=== PATIENT | male | born 1985 | race African-American/Black ===

== ENCOUNTER 2018-05-28 01:29 | Inpatient (IN) | payer OTHER, SELFPAY ==
[2018-05-28] MEDS ORDERED: Morphine 4 MG/ML VIAL ONE (01:57)
[2018-05-28] MEDS ORDERED: Ondansetron ODT 4 MG TAB ONE (01:57)
[2018-05-28 02:11] LABS: #Basophils 0.1 thou/uL (0.0-0.2); #Lymphocytes 2.5 thou/uL (1.20-3.40); #Monocytes 0.7 thou/uL (0.11-0.59); #Neutrophils 5.4 thou/uL (1.40-6.50); %Basophils 0.8 % (0.0-1.0); %Eosinophils 0.4 % (0.0-10.0); %Lymphocytes 28.6 % (21.0-51.0); %Monocytes 8.3 % (0.0-10.0); %Neutrophils 61.9 % (42.0-75.0); Hemoglobin 13.6 g/dL (14.0-18.0); Mean Corpuscular HGB CONC 34.9 g/dL (32.0-36.0); Mean Platelet Volume 7.4 fL (7.4-10.4); Platelet Count 216 thou/uL (130-400); RBC Distribution Width 11.8 % (11.5-14.5); Red Blood Cell (RBC) Count 4.68 mill/uL (4.70-6.10); White Blood Cell (WBC) Count 8.7 thou/uL (4.8-10.8)
[2018-05-28 02:15] LABS: PTT 34.6 SEC (22.9-36.1); Prothrombin Time 13.2 SEC (12.0-14.7)
[2018-05-28 02:42] LABS: ALT (SGPT) 21 U/L (8-55); AST (SGOT) 26 U/L (5-34); Albumin 4.4 g/dL (3.5-5.0); Alkaline Phosphatase 52 U/L (40-150); Anion Gap 14 mmol/L (10-20); BUN (Urea Nitrogen) 13 mg/dL (8.9-20.6); Calc. Creatinine Clearance 0 mL/min (70-130); Calcium 9.7 mg/dL (7.8-10.44); Carbon Dioxide 26 mmol/L (22-29); Chloride 103 mmol/L (98-107); Estimated GFR-MDRD Greater than 90; Globulin 3.5 g/dL (2.4-3.5); Glucose 117 mg/dL (70-105); Potassium 4.1 mmol/L (3.5-5.1); Protein, Total 7.9 g/dL (6.0-8.3); Sodium 139 mmol/L (136-145)
[2018-05-28] MEDS ORDERED: Meperidine HCl/PF 25 MG/ML VIAL SLOW IVP PRN (03:13)
[2018-05-28] MEDS ORDERED: HYDROmorphone 2 MG/ML VIAL SLOW IVP PRN (03:13)
[2018-05-28] MEDS ORDERED: Promethazine HCl 25 MG/ML VIAL SLOW IVP PRN (03:13)
[2018-05-28] MEDS ORDERED: Promethazine HCl 25 MG/ML VIAL IM PRN ×2 (03:13→10:13)
[2018-05-28] MEDS ORDERED: Ondansetron HCl/PF 4 MG/2 ML Vial IVP PRN ×2 (03:13→06:07)
[2018-05-28] MEDS ORDERED: Fentanyl 100 MCG/2 ML VIAL ONE ×4 (03:30→05:26)
--- NOTE | 2018-05-28 04:48 | HP ---
DATE OF ADMISSION: 05/28/2018 REQUESTING PHYSICIAN: Dr. Alford. ATTENDING PHYSICIAN: Dr. Terry. CONSULTATIONS: Orthopedic, Dr. Domingo. 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 The patient was able to get out from u nderneath the animal and stand up and continued to work. His initial injury was at approximately 200 0 or about 6 hours prior to arrival here. Patient continued to have increasing pain and swelling in his left lateral thigh, eventually he was brought to the emergency department, he underwent evaluatio n and examination and was noted to have suspected left lateral thigh compartment syndrome, at which t marcelina we were asked to evaluate the patient for admission and obtained Orthopedic consultation. ALLERGIES: None. CURRENT MEDICATIONS: None. PAST MEDICAL HISTORY: None. PAST SURGICAL HISTORY: None. SOCIAL HISTORY: Patient denies drug, tobacco, or alcohol use. 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 REVIEW OF SYSTEMS: Ten-point review of systems was negative as otherwise stated. PHYSICAL EXAMINATION: VITAL SIGNS: Blood pressure 129/70, heart rate 61, respirations 14, oxygen saturation is 97% on room air. GENERAL: The patient is resting in ER bed. He has been medicated recently with morphine so appears comfortable as long as he is sitting still. He is alert and oriented x3. [place] coma scale is 15. HEENT: Normocephalic, atraumatic. Eyes: Extraocular motion intact. PERRLA bilaterally. Ears are atraumatic with discharge. Nose are atraumatic with discharge. Oropharynx is clear. NECK: Nontender. Trachea is midline. No JVD. CHEST: Clear to auscultation with good inspiratory and expiratory effort. HEART: Regular rate and rhythm. ABDOMEN: Soft, flat, nontender with active bowel sounds. Pelvis is stable. EXTREMITIES: Bilateral upper extremity and right lower extremities are neurovascularly intact with s trength 5/5 and capillary refill less than 3 seconds. The left lower extremity has a 2-inch circumfe rential difference in size compared to the right side. He is markedly tender and swollen with a firm , tense area along the lateral thigh. He has increased pain with any flexion of his knee, but he is neurovascularly intact distally. His capillary refill is less than 3 seconds. LABORATORY FINDINGS: White blood cell count 8.7, hemoglobin 13.6, hematocrit 38.8, platelets 216. S odium 139, potassium 4.1, chloride 103, CO2 of 26, BUN 13, creatinine 1.11, glucose 117. LFTs are un remarkable. Lactic acid 1.3, PTT 35, PT 13, INR 1.0. Plain radiographs AP pelvis shows no acute fin dings. Radiographs of the left femur showed no acute findings. ASSESSMENT AND PLAN: 1. Status post crush injury to left thigh. 2. Possible left lateral thigh compartment syndrome. 3. Acute pain secondary to trauma. PLAN: We will be to admit the patient to the hospital, the patient was evaluated in the emergency de partment by Dr. Domingo who felt patient would need to go to the OR for a compartment release. Pos toperatively, he will have pulmonary toilet, gastritis, and mechanical VTE prophylaxis and chemical p rophylaxis when okay with the Orthopedic Service. Evaluation, examination, laboratory and radiograph ic findings will be discussed with Dr. Terry after this dictation.
--- NOTE | 2018-05-28 05:03 | CON ---
DATE OF CONSULTATION: 05/28/2018 CHIEF COMPLAINT: Left thigh pain. HISTORY OF PRESENT ILLNESS: Mr. Alvarado is a 32-year-old male who was riding a horse this evening. The horse fell and rolled on his left thigh. He had some pain initially, but was able to ambulate. Over the next several hours he had worsening pain and swelling of the thigh. He developed a tight th igh and pain that was out of control. He decided to go to the Emergency Department. X-rays were obt ained, which were negative for fracture. He was thought to have a possible compartment syndrome. He was given morphine; however, this has not relieved his pain. He is in significant discomfort. He h as been healthy otherwise. No previous fracture or other injury recently. PAST MEDICAL HISTORY: Negative. PAST SURGICAL HISTORY: Negative. ALLERGIES: No known drug allergies. SOCIAL HISTORY: The patient denies tobacco, alcohol, or drug use. FAMILY MEDICAL HISTORY: Noncontributory. PHYSICAL EXAMINATION: VITAL SIGNS: Stable. He is normotensive, 98% on room air. GENERAL: He is alert and oriented, mild distress, sitting upright. HEENT: Normocephalic, atraumatic. LUNGS: Breathing comfortably. CARDIOVASCULAR: Pulses palpable and regular. ABDOMEN: Soft, nontender, nondistended. MUSCULOSKELETAL: The patient's left lower extremity has swelling of the left thigh. He has a tense thigh, especially laterally. He has tenderness to palpation. He has inability to move his knee with out severe pain. He is able to flex and extend the foot and ankle. He has a palpable pulse. He rep orts normal sensation in the foot and ankle. SKIN: There are no skin laceration. His compartments are tense and firm to palpation. IMAGES: X-rays of the left femur demonstrate no obvious deformity or fracture. IMPRESSION: Left thigh compartment syndrome, acute from crush injury. PLAN: At this point, the patient will need to go to the operating room for emergent compartment rele ase. We will proceed with this. I have discussed this with the operating room and they are preparin g his operating room and staff. We will plan for a lateral incision to release the anterior and post erior compartments. This will need to be left open for several days and then we can come back and ho pefully close the wound. He is aware of this. He wants to proceed. He is aware of the etiology of compartment syndrome and long-term effects as well as risks which include infection, pain, scarring, bleeding muscle injury, nerve injury, chronic pain, and others.
--- NOTE | 2018-05-28 05:23 | OP ---
DATE OF PROCEDURE: 05/28/2018 OPERATION: Left thigh fasciotomy. PREOPERATIVE DIAGNOSIS: Left thigh compartment syndrome. POSTOPERATIVE DIAGNOSIS: Left thigh compartment syndrome. COMPLICATIONS: None. ESTIMATED BLOOD LOSS: Minimal. SURGEON: German Domingo M.D. ANESTHESIA: General. COMPLICATIONS: None. INDICATIONS: Mr. Alvarado is a 32-year-old male who fell from a horse. The horse rolled on his leg. He had a crushing injury to the left thigh. He had worsening swelling, pain, and evidence of compar tment syndrome. He was indicated for compartment release to restore blood flow to the musculature an d prevent complications of a missed compartment syndrome. Risks have been reviewed in detail. He jeffries s elected to proceed with the operation. DESCRIPTION OF PROCEDURE: Mr. Alvarado was identified in the preoperative holding area. His correct extremity was marked. He was carried to the operating room. He was positioned supine. General anes thesia was induced. A multidisciplinary timeout was performed. The left thigh was prepped and drape d in sterile fashion. At this point, we made a longitudinal incision extending down the anterior lat eral thigh. This was approximately 20 cm in length. We dissected down through the subcutaneous tiss ues and obtained hemostasis. At this point, we released the fascia over the lateral thigh. We had i mmediate release of the compartment with herniation of the muscle. The muscle appeared viable withou t any necrosis. We worked more deeply down to the intermuscular septum which was released. At this point, the patient's thigh was soft. There was no further tense or retained pressure. We placed a d amp gauze dressing and the patient was awoken and taken to the recovery room in good condition.
[2018-05-28] MEDS ORDERED: Dextrose 50% Abboject 50 ML SYRINGE SLOW IVP PRN (06:07)
[2018-05-28] MEDS ORDERED: Dextrose 5% in Water 1,000 ML IV PRN (06:07)
[2018-05-28] MEDS ORDERED: HYDROcodone/Acetaminophen 5/325 mg Tablet PO PRN (06:07)
[2018-05-28] MEDS ORDERED: hydrALAZINE 20 MG/ML VIAL SLOW IVP PRN (06:07)
[2018-05-28] MEDS ORDERED: traMADol HCl 50 MG TAB PO PRN ×2 (06:07)
[2018-05-28] MEDS ORDERED: Ondansetron ODT 4 MG TAB PO PRN (06:07)
[2018-05-28] MEDS: Sodium Chloride 0.9% 1,000 ML IV SCH ×3 (06:50→18:44)
[2018-05-28] MEDS: Acetaminophen 325 MG TAB PO SCH ×3 (07:27→18:24)
[2018-05-28] MEDS: Ibuprofen 800 MG TAB PO SCH ×3 (07:28→22:30)
--- NOTE | 2018-05-28 08:35 | RAD ---
AP PELVIS RADIOGRAPH: DATE: 05/28/18. HISTORY: Injury. FINDINGS: No acute fracture or dislocation is seen. There is an osseous excrescence with irregular margins inv olving the lateral aspect left iliac bone, supraacetabular region which is most likely attributable t o a prior injury in this region and is suggestive of an area of heterotopic ossification. No acute f racture or dislocation is seen. No other osseous abnormality. IMPRESSION: No acute osseous abnormality in the pelvis. POS: ELDER
--- NOTE | 2018-05-28 08:40 | RAD ---
LEFT FEMUR 2 VIEWS: Date: 05/28/18 HISTORY: Fall. COMPARISON: None. FINDINGS: There is likely some heterotopic ossification versus periosteal tug lesion of the left ilium. No acut e displaced fracture or malalignment. IMPRESSION: No acute abnormality. POS: ELDER
[2018-05-28] MEDS ORDERED: HYDROcodone/Acetaminophen 10/325 mg Tablet PO PRN (08:44)
[2018-05-28] MEDS: Famotidine 20 MG TAB PO SCH ×2 (09:29→21:05)
[2018-05-28] MEDS ORDERED: Zolpidem Tartrate 5 MG TAB PO PRN (10:13)
[2018-05-28] MEDS ORDERED: Naloxone HCl 0.4 mg/ml Vial IV PRN (10:13)
[2018-05-28] MEDS ORDERED: diphenhydrAMINE 50 MG/ML VIAL IM/IV PRN (10:13)
[2018-05-28] MEDS ORDERED: fentaNYL Citrate/PF 2,000 MCG in Sodium Chloride 0.9% 60 ML IV PRN (10:13)
[2018-05-28] MEDS ORDERED: diphenhydrAMINE 25 MG CAP PO PRN (10:13)
[2018-05-28] MEDS: CEFAZOLIN/Water 2 GM/20 ML SYRINGE SLOW IVP SCH ×2 (10:21→18:46)
[2018-05-28] MEDS: Ondansetron HCl/PF 4 MG/2 ML Vial IVP PRN ×2 (10:57→17:05)
[2018-05-28] MEDS ORDERED: Lidocaine 1% PF 5 ML VIAL ONE (13:32)
[2018-05-28] MEDS ORDERED: PROPOFOL 200 MG/20 ML VIAL ONE (13:32)
[2018-05-28] MEDS ORDERED: Ondansetron HCl/PF 4 MG/2 ML Vial ONE (13:32)
[2018-05-28 19:47] VITALS: BMI 24.7
--- NOTE | 2018-05-28 20:16 | PRG ---
DATE OF SERVICE: 05/28/2018 SUBJECTIVE: The patient is currently on the surgical floor. Early this morning, he was admitted to the hospitalist after a horse fell on him and he sustained significant contusion to his left lateral thigh. Upon evaluation in the emergency department, it was felt that he had a compartment syndrome d eveloping. He was taken urgently to the operating room by Dr. Domingo for a left thigh fasciotomy. The patient tolerated this procedure well. This morning, his pain is being controlled with a COMBATANT DIVER QUALIFIED. He is tolerating a diet. He has not yet started working with physical and occupational therapy. PHYSICAL EXAMINATION: VITAL SIGNS: Temperature is 97.5, heart rate 55, blood pressure 126/76, respirations 14, oxygen satu ration 95% on room air. GENERAL: The patient is resting comfortably in bed. He is awake, alert, and oriented x3. [place] frantz scale is 15. HEENT: Unremarkable. LUNGS: Clear to auscultation bilaterally. HEART: Regular rate and rhythm. ABDOMEN: Soft, flat, nontender. EXTREMITIES: Neurovascularly intact x4. Left thigh dressing is clean, dry, and intact. LABORATORY DATA: There are no new labs or radiographs this morning. ASSESSMENT: 1. Status post crush injury. 2. Left thigh compartment syndrome, status post left thigh fasciotomy. PLAN: Plan will be to continue supportive care. The patient will likely go back to the operating ro om in 3, possibly 4 days, for closure of his wounds depending on his swelling. We will have him work with physical and occupational therapy. The evaluation and examination were done with Dr. Nahid malave this morning.
[2018-05-29] MEDS: Acetaminophen 325 MG TAB PO SCH ×3 (00:30→12:51)
[2018-05-29] MEDS: CEFAZOLIN/Water 2 GM/20 ML SYRINGE SLOW IVP SCH ×3 (01:16→17:22)
[2018-05-29] MEDS: Ibuprofen 800 MG TAB PO SCH ×3 (05:33→22:04)
[2018-05-29 06:17] LABS: Anion Gap 7 mmol/L (10-20); BUN (Urea Nitrogen) 9 mg/dL (8.9-20.6); Calc. Creatinine Clearance 133 mL/min (70-130); Carbon Dioxide 31 mmol/L (22-29); Chloride 105 mmol/L (98-107); Estimated GFR-MDRD Greater than 90; Glucose 98 mg/dL (70-105); Potassium 4.1 mmol/L (3.5-5.1); Sodium 139 mmol/L (136-145)
[2018-05-29] MEDS ORDERED: CEFAZOLIN/Water 2 GM/20 ML SYRINGE SLOW IVP SCH (08:15)
[2018-05-29 09:50] LABS: Magnesium 1.9 mg/dL (1.6-2.6); Phosphorus 3.2 mg/dL (2.3-4.7)
[2018-05-29] MEDS: Famotidine 20 MG TAB PO SCH ×2 (10:32→22:04)
[2018-05-29] MEDS ORDERED: traMADol HCl 50 MG TAB PO PRN (10:43)
[2018-05-29] MEDS: traMADol HCl 50 MG TAB PO SCH ×3 (12:50→22:04)
[2018-05-29] MEDS ORDERED: HYDROcodone/Acetaminophen 10/325 mg Tablet PO PRN (15:25)
--- NOTE | 2018-05-29 23:58 | PRG ---
DATE OF SERVICE: 05/29/2018 ATTENDING PHYSICIAN: Dr. Charlie Whitfield. SUBJECTIVE: Mr. Alvarado is a 32-year-old male who was riding a horse when the horse fell over onto his left leg. He was admitted to the hospital with compartment syndrome and taken urgently to the operating room by Dr. Domingo for a left thigh fasciotomy. He has been stable on the surgical floor. His pain has been controlled with CONSULTING SENIOR PRACTICE DIRECTOR. He is tolerating a regular diet. OBJECTIVE: VITAL SIGNS: Temperature 97.9, pulse 81, respirations 15, O2 sat 97% room air, blood pressure 112/69. GENERAL: A well-developed, well-nourished male in no acute distress. HEENT: Atraumatic, normocephalic. CARDIOVASCULAR: Regular rate and rhythm. PULMONARY: Bilateral breath sounds clear. No respiratory distress. ABDOMEN: Soft, flat, nontender, nondistended. EXTREMITIES: Dressing in place to left thigh, clean, dry, and intact. NEUROLOGIC: Neurovascularly intact x4. Cap refill brisk in all extremities. LABORATORY DATA: No new labs this morning. ASSESSMENT: 1. Status post crushed by horse. 2. Left thigh compartment syndrome, status post left thigh fasciotomy. 3. Acute traumatic pain, controlled with patient-controlled analgesia. PLAN: 1. Transition to oral analgesia. 2. Mobilize with physical and occupational therapy. 3. Antibiotics per Orthopedic Service. 4. Pepcid for gastritis prophylaxis. 5. SCDs for DVT prophylaxis. 6. Plan to return to OR tomorrow with Orthopedics. 7. N.p.o. after midnight. The patient was seen and examined with Dr. Whitfield who agrees with plan. [facility]
[2018-05-30] MEDS: Sodium Chloride 0.9% 1,000 ML IV SCH ×2 (01:06→11:50)
[2018-05-30] MEDS: CEFAZOLIN/Water 2 GM/20 ML SYRINGE SLOW IVP SCH ×2 (01:06→11:51)
[2018-05-30] MEDS: traMADol HCl 50 MG TAB PO SCH ×2 (04:50→11:52)
[2018-05-30] MEDS: Ibuprofen 800 MG TAB PO SCH (06:15)
[2018-05-30] MEDS ORDERED: CEFAZOLIN/Water 2 GM/20 ML SYRINGE ONE (07:55)
[2018-05-30] MEDS ORDERED: Midazolam HCl 2 mg/2 ml Vial ONE (07:57)
[2018-05-30] MEDS ORDERED: HYDROmorphone 0.5 MG/0.5 ML SYRINGE ONE (07:57)
[2018-05-30] MEDS ORDERED: Bupivacaine HCl 0.5%/Epinephrine 1:200,000/PF 30 ml Vial ONE (08:59)
[2018-05-30] MEDS ORDERED: Promethazine HCl 25 MG/ML VIAL SLOW IVP PRN (09:17)
[2018-05-30] MEDS ORDERED: HYDROmorphone 2 MG/ML VIAL SLOW IVP PRN (09:17)
[2018-05-30] MEDS ORDERED: Ondansetron HCl/PF 4 MG/2 ML Vial IVP PRN (09:17)
[2018-05-30] MEDS ORDERED: Promethazine HCl 25 MG/ML VIAL IM PRN (09:17)
--- NOTE | 2018-05-30 11:29 | OP ---
DATE OF PROCEDURE: 05/30/2018 OPERATION: Left thigh fasciotomy closure. PREOPERATIVE DIAGNOSES: Recent left thigh fasciotomy for compartment syndrome. POSTOPERATIVE DIAGNOSIS: Recent left thigh fasciotomy for compartment syndrome. COMPLICATIONS: None. ESTIMATED BLOOD LOSS: Minimal. SURGEON: German Domingo M.D. ANESTHESIA: General plus local. IMPLANTS: None. INDICATIONS FOR PROCEDURE: Mr. Alvarado is a 32-year-old male, who was crushed by a horse. He had co mpartment syndrome of the left thigh. This was released 3 days ago. He has now been indicated for w ound closure to prevent complications such as the need for skin grafting or infection. Risk had been reviewed. He is aware of prolonged recovery process. DESCRIPTION OF OPERATION: Mr. Alvarado was identified in the preoperative holding area. His correct extremity was marked. He was carried to the operating room. He was positioned supine. General anes thesia was induced. A multidisciplinary timeout was performed. The left lower extremity was prepped and draped in sterile fashion. At this point, we began the procedure with irrigation of the wound. We irrigated the muscle fascia a nd subcutaneous tissues thoroughly. There was no nonviable or necrotic appearance to the muscle or t issues. The wound looked healthy and clean. At this point, we began closure. We placed our clips t o help reduce the wound. We were unable to close the fascia. It was too tight. We left the fascia open to close subcutaneous tissue in layers using a #2 Vicryl suture. We followed this by 2-0 Vicryl suture and then multiple nylon interrupted sutures. There was no tension on the skin and the wound appeared to be healthy. We placed a sterile dressing. The patient was taken to the recovery room at this point in good condition without complication.
[2018-05-30] MEDS: Famotidine 20 MG TAB PO SCH (11:51)
[2018-05-30 15:28] VITALS: BP 121/73; TEMP 98.7
--- NOTE | 2018-05-31 00:27 | DIS ---
DATE OF ADMISSION: 05/28/2018 DATE OF DISCHARGE: 05/30/2018 ADMITTING PHYSICIAN: Dr. Terry. DISCHARGING PHYSICIAN: Dr. Whitfield. CONSULTING PHYSICIAN: Dr. Domingo, Orthopedics. REASON FOR HOSPITALIZATION: Crush injury to left leg. HOSPITAL DIAGNOSES: Left compartment syndrome. DISCHARGE CONDITION: Good. DISPOSITION: Home. PROCEDURES: 1. Left thigh fasciotomy, date 05/28/2018, surgeon Dr. Domingo. 2. Left fasciotomy closure, date 05/30/2018, surgeon Dr. Domingo. Please refer to Dr. Domingo's operative report for complete details. DISCHARGE MEDICATIONS: [place] 10/325 one tab p.o. q.4-6 hours p.r.n. pain. FOLLOWUP: Dr. Domingo in 2 weeks. ACTIVITY: As tolerated. DIET: Regular. EQUIPMENT: None. BRIEF HISTORY OF HOSPITALIZATION: Mr. Alvarado is a 32-year-old male, who was riding a horse when the horse fell over on his left leg. He was able to continue riding, and subsequently, went home when h e developed pain later that night, prompting him to be evaluated in the emergency department. Left t high compartment syndrome was identified. He was admitted to the hospital by the Trauma Services. Marina Domingo, Orthopedics, was consulted and took him emergently to the operating room where he under went a fasciotomy. He then was managed on the surgical floor. Pain was controlled initially with PC A and then he was transitioned to oral analgesia. He was returned to the operating room for closure of the fasciotomy. He then mobilized with physical and occupational therapy. He was subsequently di scharged home. He is to follow up with Dr. Domingo in 2 weeks as listed above. The patient was reviewed with Dr. Whitfield at the time of this dictation.
== END 2018-05-30 17:07 | disposition home or self-care (01) | DRG 908 ==
LOC: ERS 01:29 → SDC 03:26 → SJJU 05:28
PROVIDERS: ADMIT Surgery; ATTEND Surgery
PROC: 0J8M0ZZ Division of Left Upper Leg Subcutaneous Tissue and Fascia, Open Approach (ICD-10-PCS; principal; 2018-05-28)
PROC: 0JQM0ZZ Repair Left Upper Leg Subcutaneous Tissue and Fascia, Open Approach (ICD-10-PCS; 2018-05-30)
DX: S77.12XA Crushing injury of left thigh, initial encounter (principal); T79.A22A Traumatic compartment syndrome of left lower extremity, initial encounter; W55.19XA Other contact with horse, initial encounter; G89.11 Acute pain due to trauma
CPT/HCPCS: 36415; 72170; 80048; 80053; 83605; 83735; 84100; 85025; 85610; 85730; 96374; A4216; G8978-GP-CJ; G8979-GP-CJ; G8980-GP-CJ; J0670; J1170; J2250; J2270; J2405; J2550; J3010; J7050; Q0162

== ENCOUNTER 2019-11-16 12:07 | Emergency (ER) | payer SELFPAY ==
--- NOTE | 2019-11-16 12:37 | CT ---
EXAM: CT brain without contrast HISTORY: Bucked off a horse with head trauma COMPARISON: None TECHNIQUE: Multiple contiguous axial images were obtained and a CT of the brain without contrast. FINDINGS: The brain is normal in morphology and attenuation without focal lesions or confluent areas of infarction. There is no evidence of hydrocephalus, intracranial hemorrhage, or extra-axial fluid collection. The calvarium and overlying soft tissues are unremarkable. The visualized paranasal sinuses and masto id air cells are well aerated. IMPRESSION: No evidence of acute intracranial abnormality Dr. Portillo notified of findings at 12:35 PM on 11/16/2019.
[2019-11-16 12:40] LABS: #Eosinphils 0.1 thou/uL (0.0-0.7); #Lymphocytes 2.7 thou/uL (1.20-3.40); #Monocytes 0.5 thou/uL (0.11-0.59); #Neutrophils 2.3 thou/uL (1.40-6.50); %Basophils 0.8 % (0.0-1.0); %Eosinophils 1.1 % (0.0-10.0); %Lymphocytes 48.3 % (21.0-51.0); %Monocytes 8.2 % (0.0-10.0); %Neutrophils 41.7 % (42.0-75.0); Hemoglobin 15.1 g/dL (14.0-18.0); Mean Corpuscular Hemoglobin 27.2 pg (27.0-31.0); Mean Corpuscular Volume 82.6 fL (78.0-98.0); Mean Platelet Volume 8.1 fL (7.4-10.4); Platelet Count 249 thou/uL (130-400); RBC Distribution Width 11.8 % (11.5-14.5); Red Blood Cell (RBC) Count 5.53 mill/uL (4.70-6.10); White Blood Cell (WBC) Count 5.5 thou/uL (4.8-10.8)
--- NOTE | 2019-11-16 12:57 | RAD ---
EXAM: 2 views of the right shoulder HISTORY: Shoulder pain after being bucked off a horse COMPARISON: None FINDINGS: There is no evidence of acute fracture or dislocation. No degenerative changes are seen. Th e visualized thorax is unremarkable. IMPRESSION: No evidence of acute osseous abnormality.
[2019-11-16 12:59] LABS: Anion Gap 11 mmol/L (10-20); BUN (Urea Nitrogen) 13 mg/dL (8.9-20.6); Calc. Creatinine Clearance 0 mL/min (70-130); Calcium 9.7 mg/dL (7.8-10.44); Carbon Dioxide 31 mmol/L (22-29); Chloride 103 mmol/L (98-107); Estimated GFR-MDRD 85; Glucose 101 mg/dL (70-105); Potassium 3.6 mmol/L (3.5-5.1); Sodium 141 mmol/L (136-145)
--- NOTE | 2019-11-16 13:00 | RAD ---
Portable frontal chest radiograph: 11/16/2019 COMPARISON: None HISTORY: Trauma, fall FINDINGS: Lungs are clear. Heart and mediastinal contours appear within normal limits. IMPRESSION: No acute findings.
--- NOTE | 2019-11-16 13:08 | CT ---
EXAM: CT cervical spine PROVIDED CLINICAL HISTORY: Level 2 trauma. Patient bucked off of a horse. Patient has headache and right arm pain. TECHNIQUE: Contiguous axial CT images are obtained through the cervical spine from the skull base to the T1 leve l. Sagittal and coronal reformatted images are provided. COMPARISON: None FINDINGS: Mild degenerative changes are seen at the C5-6 and C6-7 levels. There is moderate left-sided neural f oraminal narrowing at the C6-7 level due to osteophyte formation posteriorly and laterally in addition to uncinate process hypertrophy. No evidence for fracture or traumatic subluxation. No prevertebral soft tissue swelling apparent. Lung apices are not well imaged. Visualized thyroid gland demonstrates a grossly normal nonenhanced CT appearance. IMPRESSION: No evidence for fracture or traumatic subluxation. Moderate left-sided neural foraminal narrowing at the C6-7 level due to bony encroachment. Above findings discussed Dr. Portillo emergency department 11/16/2019 at 1259.
[2019-11-16] MEDS ORDERED: Ketorolac Tromethamine 60 MG/2 ML VIAL ONE (13:12)
[2019-11-16] MEDS ORDERED: Acetaminophen 500 MG TAB ONE (13:12)
== END 2019-11-16 13:16 | disposition home or self-care (01) ==
LOC: ERS 12:07
DX: S43.401A Unspecified sprain of right shoulder joint, initial encounter (principal); V80.010A Animal-rider injured by fall from or being thrown from horse in noncollision accident, initial encounter
CPT/HCPCS: 70450; 71045; 72125; 80048; 85025; 96372; J1885

== ENCOUNTER 2019-12-15 21:17 | Emergency (ER) | payer BC, SELFPAY | END 2019-12-15 21:30 | disposition home or self-care (01) | LOC: ERS 21:17 | DX: L02.31 Cutaneous abscess of buttock (principal) | CPT/HCPCS: 99282 ==

== ENCOUNTER 2019-12-18 01:36 | Emergency (ER) | payer BC ==
[2019-12-18] MEDS ORDERED: Lidocaine 1% w/Epinephrine 1:100K 20 ML VIAL ONE (01:45)
== END 2019-12-18 02:21 | disposition home or self-care (01) ==
LOC: ERS 01:36
DX: L05.01 Pilonidal cyst with abscess (principal)
CPT/HCPCS: 10080